=== PATIENT | male | born 1935 | race Caucasian/White ===

== ENCOUNTER 2017-12-29 19:17 | Inpatient (IN) | payer MEDICARE ==
[2017-12-29] MEDS ORDERED: Dexamethasone 4 MG TAB ONE (20:11)
[2017-12-29] MEDS ORDERED: Promethazine HCl 25 MG/ML VIAL IM PRN (22:05)
[2017-12-29] MEDS ORDERED: traMADol HCl 50 MG TAB PO PRN (22:05)
[2017-12-29] MEDS ORDERED: Mag-Al 1200 mg/1200 mg/30 ML UDCUP PO PRN (22:05)
[2017-12-29] MEDS ORDERED: diphenhydrAMINE 50 MG/ML VIAL IVP PRN (22:05)
[2017-12-29] MEDS ORDERED: Promethazine 25 MG TAB PO PRN (22:05)
[2017-12-29] MEDS ORDERED: Acetaminophen 325 MG TAB PO PRN (22:05)
[2017-12-29] MEDS ORDERED: Ondansetron PF 4 MG/2 ML Vial IVP PRN (22:05)
[2017-12-29] MEDS ORDERED: Milk Of Magnesia 30 ML UDCUP PO PRN (22:05)
[2017-12-29] MEDS ORDERED: HumaLOG 300 UNITS/3 ML VIAL SC PRN (22:13)
[2017-12-29] MEDS ORDERED: Dextrose 50% Abboject 50 ML SYRINGE SLOW IVP PRN (22:13)
[2017-12-29] MEDS ORDERED: Dextrose 5% in Water 1,000 ML IV PRN (22:13)
[2017-12-29] MEDS ORDERED: hydrALAZINE 20 MG/ML VIAL SLOW IVP PRN (22:17)
[2017-12-29] MEDS ORDERED: traZODone HCl 50 MG TAB PO PRN (22:17)
[2017-12-29 23:03] VITALS: BMI 24.6
[2017-12-29] MEDS: Dexamethasone 4 mg/ml Vial SLOW IVP SCH (23:08)
[2017-12-29] MEDS: Sodium Chloride 0.9% 1,000 ML IV SCH (23:20)
--- NOTE | 2017-12-30 01:16 | CON ---
DATE OF CONSULTATION: 12/29/2017 CHIEF COMPLAINT: Saddle paresthesias, weakness, and lumbar pain with incontinence. HISTORY OF PRESENT ILLNESS: This is an 82-year-old male with past medical history of coronary artery disease, status post stents; diabetes mellitus, type 2; hypertension; presenting with chief complaint of bilateral lower extremity weakness, pain, saddle paresthesias and incontinence. We have been consulted by Neurosurgery to see the patient for medical management. The patient presents to our hospital because he states that on 12/22/2017 he fell. The patient states that his foot got stuck under a tree root when lifting an object and patient fell on his back, causing a L1 lumbar compression fracture. The patient was then seen by Neurosurgery at [facility] and upon examination and further evaluations, Neurosurgery spoke with the patient's family regarding conservative treatment, which was putting on the brace and pain medication p.r.n. to conservatively manage the patient. However, today, the patient was sent from [facility] after having an MRI which showed a L1 compression fracture and marked mass effect on the conus medullaris. The patient is now currently in our ED at [facility] with the family by the bedside and also Neurosurgery PA by the bedside. Neurosurgery has explained to the patient's family and the patient regarding surgery being the only option for the patient. Family has now decided that they will undergo surgery after the family being given time to decide on whether they want to transfer the patient to [facility] or whether they want to keep the patient in [facility] for possible surgical intervention on Monday. Dr. Lou himself was silk conditioner with the patient's family and he spoke to the patient's family regarding surgical intervention. Dr. Lou also gave the family the option to meet up with him tomorrow on 12/30/2017 midday to discuss any further questions that they might have. At this time, the patient is lying in bed, has his brace on and the patient states that he has mild pain, but denies any chest pain, palpitations, fever, chills, shortness of breath, abdominal pain. The patient endorses numbness, tingling sensation in the inner things, weakness of the leg bilaterally and lumbar back pain. REVIEW OF SYSTEMS: Positive for lumbar pain, bilateral lower extremity weakness , numbness and tingling sensation of the inner thighs and incontinence. PAST MEDICAL HISTORY: Significant for coronary artery disease, status post stents; diabetes mellitus, type 2; hypertension. FAMILY HISTORY: Reviewed and noncontributory to this visit. PAST SURGICAL HISTORY: Cardiac stents, knee surgery bilaterally. CODE STATUS: The patient states that he wants to be resuscitated and wants to be intubated. Therefore, the patient is FULL CODE. PSYCHIATRIC HISTORY: No previous psychiatric history. SOCIAL HISTORY: The patient denies any smoking history. Denies any illicit drug use and denies any alcohol abuse. CURRENT MEDICATIONS: The patient takes aspirin 81 mg, citalopram 10 mg, clonidine 0.1 mg, Levemir 10 units subcu once a day, isosorbide mononitrate 30 mg once a day, levothyroxine 50 mcg, lisinopril 20 mg b.i.d., metoprolol succinate 25 mg once a day, pravastatin 40 mg once a day, ramipril 5 mg once a day, trazodone 50 mg once a day. PHYSICAL EXAMINATION: VITAL SIGNS: The patient's blood pressure is 138/87, heart rate of 89, respiratory rate of 20, temperature of 98.5. GENERAL: The patient is alert, oriented x3, not in acute distress. The patient is able to speak in full sentences. The patient is very pleasant. HEENT: Normocephalic, atraumatic. Pupils are equally round and reactive to light. Extraocular movements are intact. No scleral icterus. No conjunctival pallor. Mucous membranes are moist. NECK: Trachea is midline, full range of motion, supple. LUNGS: Clear to auscultation bilaterally. No wheezing, no rales, no rhonchi is appreciated. CARDIOVASCULAR: Positive S1, S2, regular rate and rhythm, no murmurs, no gallops or rubs appreciated. ABDOMEN: Soft, nontender, nondistended. The patient has positive bowel sounds in all quadrants. EXTREMITIES: The patient has weakness in the lower extremity bilaterally. The patient has pulses bilaterally at the lower extremities. The patient has decreased sensation at the lower extremities bilaterally. For upper extremities , the patient has 5/5 upper extremity strength and good pulses bilaterally at the upper extremities. For lower extremities, the patient does not have any edema. NEUROLOGIC: Cranial nerves II-XII grossly intact. No neurologic deficit is noted from cranial nerves II-XII, but for the lower extremity, the patient do have some numbness and tingling sensation at the inner thighs. The patient has some weakness at the lower extremities bilaterally. SKIN: Warm, dry and intact. IMAGING: Lumbar spine MRI showed unstable L1 Chance fracture with marked mass effect on the conus medullaris and proximal nerve roots of the cauda equina, severe central canal stenosis. For L2-L3, there is mild bilateral facet hypertrophy and disk space narrowing. There is mild bilateral neural foraminal stenosis. For L3-L4, there is bilateral mild facet hypertrophy and disk desiccation with mild bilateral neural foraminal stenosis. For L4 and L5, there is a desiccation and bilateral facet hypertrophy, mild central canal stenosis and mild bilateral neural foraminal stenosis. For L5 and S1, there is mild bilateral facet hypertrophy, mild bilateral neural foraminal stenosis. There is no significant central canal stenosis image retroperitoneal structure appears grossly unremarkable. For L1-L2, there is disk space narrowing and disk desiccation, moderate to severe right neural foraminal stenosis, mild left neural foraminal stenosis and mild central canal stenosis. From T12-L1, there is disk space narrowing. No significant central canal or neural foraminal stenosis at the mid portion of the L1 vertebral body at the level of the above described unstable Chance fracture. There is severe central canal stenosis with marked mass effect on the conus medullaris and the proximal nerve roots of the cauda equina. The conus medullaris appears to terminate at the level of the fracture at L1 level. LABORATORY DATA: WBC 6.5, hemoglobin is 13.0, hematocrit is 39.6, platelet is 256. CMP: Sodium is 135, potassium is 3.8, chloride is 101, CO2 is 24, BUN is 13, creatinine is 0.88, and glucose is 106. ASSESSMENT AND PLAN: This is an 82-year-old male with a past medical history of coronary artery disease, diabetes mellitus, and hypertension, being admitted for: 1. Status post fall leading to fracture of the L1 lumbar vertebra and a compression on the conus medullaris. At this point, Neurosurgery has been consulted due to findings that had been seen on the patient's MRI of the lumbar spine. Dr. Lou is aware of patient and states that patient will undergo surgical procedure on Monday. At this point, the patient is going to be started on steroids. We are going to hold the patient's antiplatelets and we are going to monitor the patient closely. We will keep patient in a back brace and we will follow up with Neurosurgery's recommendation. 2. Coronary artery disease, status post stents: At this point, we will consult Cardiology for surgical clearance. We will follow up with cardiology's recommendations. 3. Diabetes mellitus, type 2. We will start patient on insulin sliding scale. Restart the patient on his Levemir 10 units and we will monitor the patient's blood glucose very closely. We will try and keep patient's blood glucose between 140 to 180. 4. History of hypertension. We will continue to monitor the patient's blood pressure closely. We will continue patient on blood pressure medications. 5. Atrial fibrillation. The patient states that he has a history of atrial fibrillation and was on Eliquis, but has been stopped from using Eliquis. We recommend that patient be put on DVT ppx due to his risk of getting DVT or PE. 6. Deep venous thrombosis and gastrointestinal prophylaxis. We will continue patient DVT ppx and we will give patient gastrointestinal prophylaxis. 7. Disposition. Upon reviewing the MRI, this is very imperative that a neurosurgical intervention be done as soon as possible since the patient do have a marked mass effect on the conus medullaris and the proximal nerve roots of the cauda equina with severe central canal stenosis. At this point, Neurosurgery is aware of patient's condition and has reviewed the MRI. Physician Transit Operator for the neurosurgeon was also by the bedside and is aware of patient's MRI report and also contacted Neurosurgery regarding patient's situation. This case has been dictated by Dr. Timo Morel on patient Robert Lora. SANDIP
[2017-12-30] MEDS ORDERED: Dexamethasone 4 mg/ml Vial ONE (05:14)
[2017-12-30] MEDS ORDERED: Levothyroxine Sodium 50 MCG TAB ONE (05:17)
[2017-12-30] MEDS: Dexamethasone 4 mg/ml Vial SLOW IVP SCH ×3 (05:18→17:19)
[2017-12-30] MEDS: Levothyroxine Sodium 50 MCG TAB PO SCH (05:18)
[2017-12-30] MEDS ORDERED: Famotidine 20 MG TAB ONE (08:09)
[2017-12-30] MEDS: Famotidine 20 MG TAB PO SCH ×2 (09:42→21:32)
[2017-12-30] MEDS: Citalopram 10 MG TAB PO SCH (09:42)
[2017-12-30] MEDS: HYDROcodone/Acetaminophen 10/325 mg Tablet PO PRN ×2 (09:45→21:40)
[2017-12-30] MEDS: Famotidine/PF 20 mg/2ml Vial SLOW IVP SCH ×2 (10:06→22:53)
[2017-12-30] MEDS: Sodium Chloride 0.9% 1,000 ML IV SCH (10:09)
[2017-12-30] MEDS: Lisinopril 20 MG TAB PO SCH ×2 (10:09→21:33)
[2017-12-30 10:57] LABS: #Lymphocytes 0.5 thou/uL (1.20-3.40); #Monocytes 0.1 thou/uL (0.11-0.59); #Neutrophils 5.7 thou/uL (1.40-6.50); %Basophils 0.1 % (0.0-1.0); %Eosinophils 0.2 % (0.0-10.0); %Lymphocytes 7.8 % (21.0-51.0); %Monocytes 1.9 % (0.0-10.0); Hemoglobin 12.7 g/dL (14.0-18.0); Mean Corpuscular HGB CONC 32.5 g/dL (32.0-36.0); Mean Corpuscular Hemoglobin 29.7 pg (27.0-31.0); Mean Corpuscular Volume 91.4 fL (78.0-98.0); Mean Platelet Volume 6.2 fL (7.4-10.4); Platelet Count 266 thou/uL (130-400); RBC Distribution Width 14.1 % (11.5-14.5); Red Blood Cell (RBC) Count 4.29 mill/uL (4.70-6.10); White Blood Cell (WBC) Count 6.3 thou/uL (4.8-10.8)
[2017-12-30 11:06] LABS: INR-International Normal Ratio 1.1; PTT 31.4 SEC (22.9-36.1); Prothrombin Time 13.8 SEC (12.0-14.7)
[2017-12-30 11:15] LABS: ALT (SGPT) 11 U/L (8-55); AST (SGOT) 20 U/L (5-34); Albumin 3.2 g/dL (3.4-4.8); Alkaline Phosphatase 116 U/L (40-150); Anion Gap 18 mmol/L (10-20); BUN (Urea Nitrogen) 18 mg/dL (8.4-25.7); Bilirubin, Total 1.4 mg/dL (0.2-1.2); Calc. Creatinine Clearance 77 mL/min (70-130); Calcium 8.7 mg/dL (7.8-10.44); Carbon Dioxide 20 mmol/L (23-31); Chloride 99 mmol/L (98-107); Estimated GFR-MDRD 78; Globulin 2.2 g/dL (2.4-3.5); Glucose 185 mg/dL (83-110); Potassium 4.5 mmol/L (3.5-5.1); Protein, Total 5.4 g/dL (5.8-8.1); Sodium 132 mmol/L (136-145)
[2017-12-30] MEDS: HumaLOG 300 UNITS/3 ML VIAL SC PRN ×2 (12:07→17:19)
--- NOTE | 2017-12-30 13:36 | PRG ---
DATE OF SERVICE: 12/30/2017 I am seeing Mr. Lora and his family. I had seen him at [facility] last week for his complex L 1 fracture in the setting of DISH. He was transferred to rehab and he was doing well until approxima tely a week when he has begun to develop some saddle dysesthesias and some incontinence. On physical exam today, he has good leg strength. He has normal leg sensation, although he does comp garrett of intermittent dysesthesias. MRI of the lumbar spine reveals some progression of the posterior aspect of the L1 fracture with comp ression of the conus. ASSESSMENT AND PLAN: This is going to require surgical decompression and stabilization. He is at qu ite elevated risk given his age, heart disease, and diabetes as well as the invasiveness of the surge ry. We will hold his aspirin and get medicine on board to try to optimize his preoperative status, a lthough we will need to proceed with surgery regardless of cardiac risk. I discussed at length with the patient and his family the indications, risks, benefits, alternatives of the decompression and stabilization of the L1 fracture including but not limited to , paralys is, new neurologic deficit, infection, CSF leak, hematoma, failure of fusion, failure of hardware, wo und-related complications, or other complication. They expressed understanding and wished to proceed .
--- NOTE | 2017-12-30 13:41 | PDOC.PN ---
- Subjective Encounter Start Date: 12/30/17 Encounter Start Time: 08:15 -: old records requested/rev Pt seen and examined, chart reviewed in its entirety, this is my first visit with this patient. Follow up for lumbar fracture, incontinence, intractable back pain No F/C, no N/V/D/C, no CP or sOB, no cough or sputum All systems reviewed and neg x as above - Objective Resuscitation Status: Resuscitation Status FULL:Full Resuscitation MAR Reviewed: Yes Vital Signs & Weight: Vital Signs (12 hours) Temp Pulse Resp BP BP Pulse Ox 12/30/17 11:40 98.5 F 91 12 98/57 L 92 L 12/30/17 10:09 156/74 H 12/30/17 07:15 99 F 103 H 16 156/84 H 94 L 12/30/17 04:13 97.9 F 101 H 16 147/74 H 93 L Weight Weight 191 lb 12.835 oz I&O: 12/29/17 12/30/17 12/31/17 06:59 06:59 06:59 Intake Total 520 Balance 520 Result Diagrams: 12/30/17 10:28 12/30/17 10:28 Additional Labs: Accuchecks 12/30/17 12/30/17 11:35 05:13 POC Glucose 166 H 129 H Radiology Reviewed by me: Yes EKG Reviewed by me: Yes Phys Exam - Physical Examination Constitutional: NAD HEENT: PERRLA, moist MMs, sclera anicteric, oral pharynx no lesions Neck: no nodes, no JVD, supple, full ROM Respiratory: no wheezing, no rales, no rhonchi, clear to auscultation bilateral Cardiovascular: RRR, no significant murmur, no rub Gastrointestinal: soft, non-tender, no distention, positive bowel sounds Musculoskeletal: no edema Neurological: moves all 4 limbs Lymphatic: no nodes Psychiatric: normal affect, A&O x 3 Skin: no rash, normal turgor, cap refill <2 seconds Dx/Plan (1) Lumbar vertebral fracture Status: Acute Qualifiers: Encounter type: initial encounter Lumbar vertebra fracture level: unspecified lumbar vertebra Fracture type: closed Fracture morphology: burst - unstable Qualified Code(s): S32.002A - Unstable burst fracture of unspecified lumbar vertebra, initial encounter for closed fracture Comment: TLSO brace in place. to OR Monday for stabilization (2) Cauda equina spinal cord injury Code(s): S34.3XXA - INJURY OF CAUDA EQUINA, INITIAL ENCOUNTER Status: Acute Qualifiers: Encounter type: initial encounter Qualified Code(s): S34.3XXA - Injury of cauda equina, initial encounter (3) CAD (coronary artery disease) Code(s): I25.10 - ATHSCL HEART DISEASE OF [place] CORONARY ARTERY W/O ANG PCTRS Status: Chronic Qualifiers: Coronary Disease-Associated Artery/Lesion type: [place] artery [place] vs. transplanted heart: [place] heart Associated angina: without angina Qualified Code(s): I25.10 - Atherosclerotic heart disease of [place] coronary artery without angina pectoris - Plan cont current plan of care, plan discussed w/ family, PT/OT, social media marketing analyst * .
--- NOTE | 2017-12-30 19:06 | CON ---
DATE OF CONSULTATION: 12/30/2017 INDICATION FOR CONSULTATION: An 82-year-old gentleman who needs to undergo orthopedic procedure for ruptured disk from L1 fracture and cord compression. HISTORY OF PRESENT ILLNESS: This is a very unfortunate 82-year-old gentleman who lives in [place], was now moving to this area, has been in transition. He was here visiting family when he fell on 12/15/2017. He had injured his back, but now has continued to have worsening of problems with bowel incontinence and paresthesias in the lower extremities with weakness, and was asked to be admitted to the hospital for most likely needing to undergo surgical correction of this. He is now at this time in the bed with a tortoise shell on and we have been asked by Neurology to see the patient in order to clear him for surgery as he does have a history of coronary artery disease and had bypass surgery. He had stents placed and also bypass surgery about 10 years ago. His last echocardiogram and stress test were by his television parts tester in [place], Dr. Rincon, approximately a year ago and apparently these were unremarkable, at least according to the patient, and we will try to obtain those records. Otherwise, he has been doing quite well from a cardiac standpoint. He denies any symptoms. He does have diabetes and hypertension as well as hypercholesterolemia. He did not smoke in the past, but most likely his coronary artery disease was felt to be due to diabetes and hypercholesterolemia. PAST MEDICAL HISTORY: Significant for the coronary artery disease, angioplasty , stent placements, bypass surgery, diabetes type 2, and hypertension. He has had bilateral knee replacements and he had no complications during those surgeries. FAMILY HISTORY: Noncontributory. REVIEW OF SYSTEMS: His 12-point review of systems is unremarkable except what was noted in the history of present illness with his back pain and the weakness and tingling of the lower extremities. SOCIAL HISTORY: No history of alcohol or tobacco abuse. He is retired. REVIEW OF SYSTEMS: Unremarkable. PRESENT MEDICATIONS: Aspirin, citalopram, clonidine, Levemir, isosorbide mononitrate, levothyroxine, lisinopril, metoprolol, pravastatin, ramipril, and trazodone. PHYSICAL EXAMINATION: GENERAL: Reveals a well-developed, well-nourished gentleman. VITAL SIGNS: Blood pressure 156/74, respiratory rate 16. He is afebrile. Heart rate is 100. Temperature is 99. HEENT: Shows the head to be normocephalic and atraumatic. Carotid pulses present. There were no bruits. CHEST: Clear to auscultation without rales, rhonchi, or wheezing. CARDIOVASCULAR: Regular rate and rhythm. Normal S1, S2. There is no S3 or S4. There were no significant murmurs, heaves, thrills, bruits, or rubs. ABDOMEN: Soft and nontender, but it is difficult to evaluate fully due to the orthopedic tortoise shell. EXTREMITIES: No clubbing, cyanosis, edema. Pedal pulses are present. NEUROLOGIC: The patient was unable to get out of the bed for a full evaluation , but he does have some tingling on the lower extremities. For the full evaluation, please refer to the notes dictated by the neurologist or the neurosurgeons. LABORATORY DATA: Hemoglobin of 12.7 with a WBC of 6.3, platelet count 266,000. Creatinine is 0.88, potassium is 3.8. IMPRESSION: Unfortunate gentleman who needs to undergo surgical procedure for his L1 fracture and spinal cord compression. He has had no recent cardiac events. He denies any symptoms. He remains very active. We will try to obtain records from his television parts tester, Dr. Rincon, as soon as possible. I would suggest he have an echocardiogram performed at this time for evaluation of left ventricular systolic function to ensure there are no valvular abnormalities. As far as his coronary artery disease is concerned, he does have diabetes and may not experience chest discomfort, but if he has had a stress test within the last year that was unremarkable and has had no new symptoms, then I would suggest he proceed with his scheduled surgery without further delay. As far as his other medical problems, please refer to the notes dictated by the primary care service for control of his diabetes as well as his hypertension and hypercholesterolemia. We will be happy to continue to follow the patient with you. SANDIP
[2017-12-30] MEDS: Insulin Glargine 10 UNITS in Pre-Filled Syringe 1 EACH SC SCH (21:31)
[2017-12-30] MEDS: Pravastatin Sodium 40 MG TAB PO SCH (21:36)
[2017-12-31] MEDS: Dexamethasone 4 mg/ml Vial SLOW IVP SCH ×2 (00:46→06:26)
[2017-12-31] MEDS: Sodium Chloride 0.9% 1,000 ML IV SCH ×2 (03:05→11:32)
[2017-12-31] MEDS: Levothyroxine Sodium 50 MCG TAB PO SCH (06:26)
[2017-12-31] MEDS: HumaLOG 300 UNITS/3 ML VIAL SC PRN ×3 (06:26→17:06)
[2017-12-31] MEDS: HYDROcodone/Acetaminophen 10/325 mg Tablet PO PRN ×2 (06:30→20:40)
[2017-12-31] MEDS: Famotidine 20 MG TAB PO SCH ×2 (08:53→20:41)
[2017-12-31] MEDS: Famotidine/PF 20 mg/2ml Vial SLOW IVP SCH ×2 (08:53→20:50)
[2017-12-31] MEDS: Citalopram 10 MG TAB PO SCH (08:53)
[2017-12-31] MEDS: Lisinopril 20 MG TAB PO SCH ×2 (08:55→20:40)
--- NOTE | 2017-12-31 11:18 | PDOC.PN ---
- Subjective Encounter Start Date: 12/31/17 Encounter Start Time: 08:15 Follow up for lumbar fracture, incontinence, intractable back pain No F/C, no N/V/D/C, no CP or sOB, no cough or sputum All systems reviewed and neg x as above - Objective Resuscitation Status: Resuscitation Status FULL:Full Resuscitation MAR Reviewed: Yes Vital Signs & Weight: Vital Signs (12 hours) Temp Pulse Resp BP BP Pulse Ox 12/31/17 11:08 98.9 F 90 18 148/73 H 93 L 12/31/17 08:55 18 117/72 93 L 12/31/17 08:40 98.1 F 77 14 119/70 91 L 12/31/17 00:00 98.9 F 87 16 119/67 94 L Weight Weight 191 lb 12.835 oz I&O: 12/30/17 12/31/17 01/01/18 06:59 06:59 06:59 Intake Total 520 1470 490 Output Total 500 400 Balance 520 970 90 Result Diagrams: 12/30/17 10:28 12/30/17 10:28 Additional Labs: Accuchecks 12/31/17 12/30/17 12/30/17 05:35 21:30 16:24 POC Glucose 168 H 274 H 178 H 12/30/17 11:35 POC Glucose 166 H Phys Exam - Physical Examination Constitutional: NAD HEENT: PERRLA, moist MMs, sclera anicteric, oral pharynx no lesions Neck: no nodes, no JVD, supple, full ROM Respiratory: no wheezing, no rales, no rhonchi, clear to auscultation bilateral Cardiovascular: RRR, no significant murmur Gastrointestinal: soft, non-tender, no distention, positive bowel sounds Musculoskeletal: no edema Neurological: non-focal, moves all 4 limbs Lymphatic: no nodes Psychiatric: normal affect, A&O x 3 Skin: no rash, normal turgor, cap refill <2 seconds Dx/Plan (1) Lumbar vertebral fracture Status: Acute Qualifiers: Encounter type: initial encounter Lumbar vertebra fracture level: unspecified lumbar vertebra Fracture type: closed Fracture morphology: burst - unstable Qualified Code(s): S32.002A - Unstable burst fracture of unspecified lumbar vertebra, initial encounter for closed fracture Comment: TLSO brace in place. to OR Monday for stabilization (2) Cauda equina spinal cord injury Code(s): S34.3XXA - INJURY OF CAUDA EQUINA, INITIAL ENCOUNTER Status: Acute Qualifiers: Encounter type: initial encounter Qualified Code(s): S34.3XXA - Injury of cauda equina, initial encounter (3) CAD (coronary artery disease) Code(s): I25.10 - ATHSCL HEART DISEASE OF [place] CORONARY ARTERY W/O ANG PCTRS Status: Chronic Qualifiers: Coronary Disease-Associated Artery/Lesion type: [place] artery [place] vs. transplanted heart: [place] heart Associated angina: without angina Qualified Code(s): I25.10 - Atherosclerotic heart disease of [place] coronary artery without angina pectoris - Plan * .
[2017-12-31] MEDS: Insulin Glargine 10 UNITS in Pre-Filled Syringe 1 EACH SC SCH (20:41)
[2017-12-31] MEDS: Pravastatin Sodium 40 MG TAB PO SCH (20:41)
[2018-01-01] MEDS: Sodium Chloride 0.9% 1,000 ML IV SCH ×3 (00:48→21:42)
[2018-01-01] MEDS: Levothyroxine Sodium 50 MCG TAB PO SCH (05:10)
[2018-01-01] MEDS: HYDROcodone/Acetaminophen 10/325 mg Tablet PO PRN ×4 (05:10→21:42)
[2018-01-01 05:40] LABS: #Eosinphils 0.1 thou/uL (0.0-0.7); #Lymphocytes 1.7 thou/uL (1.20-3.40); #Monocytes 0.8 thou/uL (0.11-0.59); #Neutrophils 5.5 thou/uL (1.40-6.50); %Eosinophils 0.9 % (0.0-10.0); %Lymphocytes 21.1 % (21.0-51.0); %Monocytes 9.9 % (0.0-10.0); %Neutrophils 68.1 % (42.0-75.0); Hemoglobin 13.3 g/dL (14.0-18.0); Mean Corpuscular HGB CONC 32.7 g/dL (32.0-36.0); Mean Corpuscular Hemoglobin 29.1 pg (27.0-31.0); Mean Corpuscular Volume 88.8 fL (78.0-98.0); Mean Platelet Volume 6.4 fL (7.4-10.4); Platelet Count 283 thou/uL (130-400); RBC Distribution Width 13.7 % (11.5-14.5); Red Blood Cell (RBC) Count 4.58 mill/uL (4.70-6.10)
[2018-01-01 05:50] LABS: Anion Gap 10 mmol/L (10-20); BUN (Urea Nitrogen) 23 mg/dL (8.4-25.7); Calc. Creatinine Clearance 71 mL/min (70-130); Calcium 8.4 mg/dL (7.8-10.44); Carbon Dioxide 27 mmol/L (23-31); Chloride 101 mmol/L (98-107); Estimated GFR-MDRD 72; Glucose 96 mg/dL (83-110); Magnesium 1.8 mg/dL (1.6-2.6); Sodium 134 mmol/L (136-145)
[2018-01-01] MEDS ORDERED: Sodium Chloride 0.9% 10 ML ONE (06:32)
[2018-01-01] MEDS ORDERED: Fentanyl 100 MCG/2 ML VIAL ONE ×5 (06:38→11:46)
[2018-01-01] MEDS ORDERED: CEFAZOLIN 2 GM/50 ML BAG ONE (07:23)
--- NOTE | 2018-01-01 10:23 | OP ---
DATE OF PROCEDURE: 01/01/2018 SURGEON: Shashi Lou M.D. TOWER DRAGLINE OPERATOR: Peng Pantoja PA-C PROCEDURE: Decompressive L1 laminectomy, posterolateral arthrodesis T11-L3, demineralized bone matri x, local morselized autograft, BMP, attempted pedicle screw instrumentation T11-L3. PROCEDURE IN DETAIL: The patient was brought to the operating room and intubated. He was rolled in the prone position on gel-filled chest rolls. Incision made exposing T11 through L3 and our level wa s confirmed by x-ray. We did identify some evidence of posterior fracture at the L1 site. The patie nt had autofusion at multiple areas of the posterior lumbar region, but ultimately we were able to ob tain a corridor in the region of the L1-L2 interspace. Using this corridor, we then performed a comp lete decompression in the region of the L1 fracture and a complete L1 laminectomy was performed as we ll as some amount of L2 and some amount of T12. A complete decompression of the spinal cord was achi eved. We next attempted to place pedicle screws. Pedicle screw placement failed. At each level attempted, the bone of the pedicle was extremely soft and the access corridor became projected laterally and me dially with minimal potential access corridor into the vertebral body with an extremely soft bony sub strate. I attempted right L3, right L2, right T11, left L3 and left L2 before ultimately aborting. At none of these attempted levels was a successful screw able to be placed despite multiple attempts at each level. Ultimately, I believe that the patient's bone stock will not support instrumentation. The wound was then extensively irrigated. Immaculate hemostasis was secured. BMP was soaked on a Gelf[place]am pledget combined with local morselized autograft and demineralized bone matrix and laid over the posterolateral surfaces from T11-L3. Vancomycin powder was then applied and the wound was closed in anatomic layers over a drain.
[2018-01-01] MEDS ORDERED: Morphine Sulfate 2 MG/ML SYRINGE SLOW IVP PRN (10:29)
[2018-01-01] MEDS ORDERED: Promethazine HCl 25 MG/ML VIAL SLOW IVP PRN (10:29)
[2018-01-01] MEDS ORDERED: Promethazine HCl 25 MG/ML VIAL IM PRN (10:29)
[2018-01-01] MEDS ORDERED: Ondansetron HCl/PF 4 MG/2 ML Vial IVP PRN (10:29)
[2018-01-01] MEDS ORDERED: Morphine 2 MG/ML SYRINGE ONE ×2 (10:56→11:23)
--- NOTE | 2018-01-01 12:27 | PDOC.PN ---
- Subjective Encounter Start Date: 01/01/18 Encounter Start Time: 12:25 Subjective: f/u for cauda equina syndrome and L1 vertebral fx. Neurosurgical -: intervention unsuccessful due to osteopenia. - Objective Resuscitation Status: Resuscitation Status FULL:Full Resuscitation MAR Reviewed: Yes Vital Signs & Weight: Weight Weight 191 lb 12.835 oz I&O: 12/31/17 01/01/18 01/02/18 06:59 06:59 06:59 Intake Total 1470 3520 Output Total 500 2500 Balance 970 1020 Result Diagrams: 01/01/18 04:38 01/01/18 04:39 Additional Labs: Accuchecks 12/31/17 12/31/17 20:35 15:55 POC Glucose 149 H 232 H Radiology Reviewed by me: Yes (2D echo - EF 45%, diast dysfxn) Phys Exam - Physical Examination Constitutional: NAD HEENT: PERRLA, sclera anicteric, oral pharynx no lesions Neck: no nodes, no JVD, supple, full ROM Respiratory: no wheezing, no rales, no rhonchi, clear to auscultation bilateral S1, S2 Cardiovascular: RRR, no significant murmur, no rub, gallop Gastrointestinal: soft, non-tender, no distention, positive bowel sounds TLSO brace in place Musculoskeletal: no edema, pulses present Neurological: normal sensation, moves all 4 limbs A x O x 2 Skin: normal turgor, cap refill <2 seconds Dx/Plan (1) L1 vertebral fracture Code(s): S32.019A - UNSP FRACTURE OF FIRST LUMBAR VERTEBRA, INIT FOR CLOS FX Status: Acute Comment: conservative mgmt, TLSO bracing, pain control, PT/OT, Rehab options (2) Cauda equina spinal cord injury Code(s): S34.3XXA - INJURY OF CAUDA EQUINA, INITIAL ENCOUNTER Status: Acute Qualifiers: Encounter type: initial encounter Qualified Code(s): S34.3XXA - Injury of cauda equina, initial encounter Comment: TLSO bracing, pain control, PT (3) Diastolic dysfunction Code(s): I51.9 - HEART DISEASE, UNSPECIFIED Status: Chronic Comment: No exacerbation currently (4) CAD (coronary artery disease) Code(s): I25.10 - ATHSCL HEART DISEASE OF [place] CORONARY ARTERY W/O ANG PCTRS Status: Chronic Qualifiers: Coronary Disease-Associated Artery/Lesion type: [place] artery [place] vs. transplanted heart: [place] heart Associated angina: without angina Qualified Code(s): I25.10 - Atherosclerotic heart disease of [place] coronary artery without angina pectoris Comment: Chronic, stable, continue med mgmt (5) DM II (diabetes mellitus, type II), controlled Code(s): E11.9 - TYPE 2 DIABETES MELLITUS WITHOUT COMPLICATIONS Status: Chronic Comment: [place] 10u HS, ISS, ADA - Plan PT/OT, social insurance adviser, DVT proph w/SCDs Stable currently -: Pain control -: PT/OT for optimization of mobility -: TLSO bracing -: CM for Rehab/SNF options * .
[2018-01-01] MEDS: Citalopram 10 MG TAB PO SCH (13:12)
[2018-01-01] MEDS: Famotidine 20 MG TAB PO SCH ×2 (13:12→21:03)
[2018-01-01] MEDS: Famotidine/PF 20 mg/2ml Vial SLOW IVP SCH ×2 (13:13→21:03)
[2018-01-01] MEDS: Lisinopril 20 MG TAB PO SCH ×2 (13:13→21:02)
[2018-01-01] MEDS: CEFAZOLIN 1 GM VIAL SLOW IVP SCH ×2 (13:21→21:04)
[2018-01-01] MEDS: Morphine 2 MG/ML SYRINGE SLOW IVP PRN ×2 (14:21→16:08)
[2018-01-01] MEDS ORDERED: PROPOFOL 200 MG/20 ML VIAL ONE (15:09)
[2018-01-01] MEDS ORDERED: Ondansetron PF 4 MG/2 ML Vial ONE (15:09)
[2018-01-01] MEDS ORDERED: PHENYLEPHRINE-NS 100 MCG/ML 10 ML SYRINGE ONE (15:09)
[2018-01-01] MEDS ORDERED: Lidocaine 1% PF 5 ML VIAL ONE (15:09)
[2018-01-01] MEDS ORDERED: Glycopyrrolate 0.2 MG/ML 5 ML SYRINGE ONE (15:09)
[2018-01-01] MEDS ORDERED: ePHEDrine/0.9% NaCl/PF SYRINGE 50 mg/10 ml ONE (15:09)
--- NOTE | 2018-01-01 16:42 | PDOC.CTH ---
Cardiology Progress Note - Subjective Pt. is in the CCU after spinal surgery this AM. Apparrently he has significant osteoporosis and required cementing and bone grafting for the fracture. The cord compression seems to be resolved and he has already been sen by PT. He is resting comfortably now. No cardiac events. - Objective Vital Signs Temp Pulse Pulse BP BP BP Pulse Ox 01/01/18 15:05 98 103 H 120/74 118/72 01/01/18 14:22 98 107 H 136/74 140/75 01/01/18 13:13 128/65 01/01/18 13:00 97.6 F 01/01/18 12:42 97 Pulse Ox Pulse Ox 01/01/18 15:05 01/01/18 14:22 94 L 96 01/01/18 13:13 01/01/18 13:00 01/01/18 12:42 Weight 191 lb 12.835 oz 12/31/17 01/01/18 01/02/18 06:59 06:59 06:59 Intake Total 1470 3520 490 Output Total 500 2500 340 Balance 970 1020 150 - Physical Examination General/Neuro: alert & oriented x3 Neck: no JVD present Lungs: CTA, unlabored respirations Heart: RRR Abdomen: NT/ND, soft - Telemetry Telemetry Rhythm: NSR - Labs Result Diagrams: 01/01/18 04:38 01/01/18 04:39 - Assessment/Plan 1. s/p spinal surgery for cord compression and disc fracture. 2. CAD: stable. No cardiac events. History of stent placement. 3. CMY: EF 40-45%. Records from previous embossed or impressed lettering painter not yet available. Overall cardiac status is stable. I will continue to follow with you for a couple days and if no events then will sign off and he can f/u in the office in 4-6 weeks.
--- NOTE | 2018-01-01 16:47 | CON ---
DATE OF CONSULTATION: 01/01/2018 I visited with Ms. Lora postoperatively. He has good leg strength and sensation. He was having so me back pain, which is fairly typical postoperative in nature. We will continue to observe him in the ICU tonight and we will also check an ultrasound of the legs. We will plan to mobilize him more aggressively beginning tomorrow and move him to the floor. He sharif l need to be in his TLSO indefinitely.
--- NOTE | 2018-01-01 19:13 | ULT ---
ULTRASOUND WITH DOPPLER DUPLEX VENOUS LOWER EXTREMITY [] CPT: 75186 ICD-10-PCS: B54D HISTORY: Pain and edema. TECHNIQUE: Color flow Doppler, spectral waveform analysis of pulsed Doppler, and zamora-scale imaging with andrzej jim and augmentation, were used to evaluate the bilateral common femoral, femoral, popliteal, sales assistant displays ior tibial, and superficial femoral, veins; and the proximal portions of the profunda femoral and gre ater saphenous, veins. FINDINGS: There is no evidence of DVT identified. There is compressibility and flow within the imaged deep vein system of each lower extremity. Economic Development Specialist notes sluggish flow within the venous structures during image acquisition. IMPRESSION: No DVT is demonstrated within the visualized bilateral lower extremities. POS: CRICKET
[2018-01-01] MEDS: Pravastatin Sodium 40 MG TAB PO SCH (21:02)
[2018-01-01] MEDS: Insulin Glargine 10 UNITS in Pre-Filled Syringe 1 EACH SC SCH (21:03)
[2018-01-02] MEDS: Levothyroxine Sodium 50 MCG TAB PO SCH (05:45)
[2018-01-02] MEDS: CEFAZOLIN 1 GM VIAL SLOW IVP SCH ×3 (05:45→22:00)
[2018-01-02] MEDS: HYDROcodone/Acetaminophen 10/325 mg Tablet PO PRN ×3 (08:40→22:00)
[2018-01-02] MEDS: Morphine 2 MG/ML SYRINGE SLOW IVP PRN (08:44)
[2018-01-02] MEDS: Lisinopril 20 MG TAB PO SCH (09:13)
[2018-01-02] MEDS: Famotidine 20 MG TAB PO SCH ×2 (09:13→21:59)
[2018-01-02] MEDS: Citalopram 10 MG TAB PO SCH (09:15)
[2018-01-02] MEDS ORDERED: Morphine 2 MG/ML SYRINGE SLOW IVP PRN (09:20)
--- NOTE | 2018-01-02 10:36 | PDOC.CTH ---
<Allison Capps - Last Filed: 01/02/18 10:34> Cardiology Progress Note - Subjective The pt seen and examined. No overnight events. No cardiac complaints. He has mild discomfort to his back. HR has been up since he was up to chair this AM around 0800. - Objective Vital Signs Temp Pulse Pulse BP BP BP Pulse Ox 01/02/18 09:58 98.1 F 01/02/18 09:13 139/77 01/02/18 08:20 144 H 120 H 154/95 H 131/90 01/02/18 07:35 95 01/02/18 07:00 98.2 F 01/02/18 04:00 97.9 F 01/02/18 00:00 97.7 F Pulse Ox Pulse Ox 01/02/18 09:58 01/02/18 09:13 01/02/18 08:20 95 95 01/02/18 07:35 01/02/18 07:00 01/02/18 04:00 01/02/18 00:00 Weight 191 lb 12.835 oz 01/01/18 01/02/18 01/03/18 06:59 06:59 06:59 Intake Total 3520 2197 200 Output Total 2500 1002 250 Balance 1020 1195 -50 - Physical Examination General/Neuro: alert & oriented x3 Neck: no JVD present Heart: RRR Abdomen: soft Extremities: other: (No edema) - Telemetry Telemetry Rhythm: ST 110s - Labs Result Diagrams: 01/01/18 04:38 01/01/18 04:39 - Assessment/Plan 1. S/p spinal surgery for cord compression and disc fracture on 01/01/18. 2. CAD with hx of multiple stents - stable. No cardiac events. On Lisinopril. Will start Metoprolol 12.5mg BID from today for ST. 3. CMY: EF 40-45%. Records from previous care partner not yet available. Overall cardiac status is stable. I will continue to follow with you for a couple days and if no events then will sign off and he can f/u in the office in 4-6 weeks. Review of Systems - Review of Systems Constitutional: reports: no symptoms reported EENTM: reports: no symptoms reported Respiratory: reports: no symptoms reported Cardiac (ROS): reports: no symptoms reported ABD/GI: reports: no symptoms reported : reports: no symptoms reported Musculoskeletal: reports: no symptoms reported Skin: reports: no symptoms reported <Belkis Staley - Last Filed: 01/02/18 10:56> Cardiology Progress Note - Objective Vital Signs Temp Pulse Pulse BP BP BP Pulse Ox 01/02/18 09:58 98.1 F 01/02/18 09:13 139/77 01/02/18 08:20 144 H 120 H 154/95 H 131/90 01/02/18 07:35 95 01/02/18 07:00 98.2 F 01/02/18 04:00 97.9 F 01/02/18 00:00 97.7 F Pulse Ox Pulse Ox 01/02/18 09:58 01/02/18 09:13 01/02/18 08:20 95 95 01/02/18 07:35 01/02/18 07:00 01/02/18 04:00 01/02/18 00:00 Weight 191 lb 12.835 oz 01/01/18 01/02/18 01/03/18 06:59 06:59 06:59 Intake Total 3520 2197 200 Output Total 2500 1002 250 Balance 1020 1195 -50 - Labs Result Diagrams: 01/01/18 04:38 01/01/18 04:39 - Assessment/Plan Pt. seen and eval. by me. I agree with the A/P by the CLIENT SERVICE REPRESENTATIVE. Chest clear. RRR. Agree with betablockers. Pt. was on metoprolol in the past.
[2018-01-02] MEDS: HumaLOG 300 UNITS/3 ML VIAL SC PRN ×2 (10:54→16:37)
[2018-01-02] MEDS ORDERED: Metoprolol Tartrate 25 MG TAB PO SCH (11:00)
--- NOTE | 2018-01-02 12:40 | PDOC.PN ---
- Subjective Encounter Start Date: 01/02/18 Encounter Start Time: 12:20 Subjective: f/u L1 vertebral compression fx not amenable to fusion due to osteopenia -: and poor bone matrix. Feels some better and less pain with TLSO brace. -: Tachycardia noted per nursing. - Objective Resuscitation Status: Resuscitation Status FULL:Full Resuscitation MAR Reviewed: Yes Vital Signs & Weight: Vital Signs (12 hours) Temp Pulse Pulse BP BP BP Pulse Ox 01/02/18 09:58 98.1 F 01/02/18 09:13 139/77 01/02/18 08:20 144 H 120 H 154/95 H 131/90 01/02/18 07:35 95 01/02/18 07:00 98.2 F 01/02/18 04:00 97.9 F Pulse Ox Pulse Ox 01/02/18 09:58 01/02/18 09:13 01/02/18 08:20 95 95 01/02/18 07:35 01/02/18 07:00 01/02/18 04:00 Weight Weight 191 lb 12.835 oz Most Recent Monitor Data Heart Rate from ECG 108 NIBP 100/67 NIBP BP-Mean 78 Respiration from ECG 16 SpO2 94 I&O: 01/01/18 01/02/18 01/03/18 06:59 06:59 06:59 Intake Total 3520 2197 300 Output Total 2500 1002 295 Balance 1020 1195 5 Result Diagrams: 01/01/18 04:38 01/01/18 04:39 Additional Labs: Accuchecks 01/02/18 01/02/18 01/01/18 10:50 05:45 21:01 POC Glucose 157 H 122 H 122 H 01/01/18 16:43 POC Glucose 137 H Radiology Reviewed by me: Yes (BLE venous doppler - negative for DVT) EKG Reviewed by me: Yes (Tele - Sinus tachycardia) Phys Exam - Physical Examination Constitutional: NAD alert, responsive HEENT: PERRLA, sclera anicteric, oral pharynx no lesions Neck: no nodes, no JVD, supple, full ROM Respiratory: no wheezing, no rales, no rhonchi, clear to auscultation bilateral tachycardic S1, S2 Cardiovascular: no significant murmur, no rub, gallop Gastrointestinal: soft, non-tender, no distention, positive bowel sounds Musculoskeletal: no edema, pulses present Neurological: moves all 4 limbs Skin: normal turgor, cap refill <2 seconds Dx/Plan (1) L1 vertebral fracture Code(s): S32.019A - UNSP FRACTURE OF FIRST LUMBAR VERTEBRA, INIT FOR CLOS FX Status: Acute Comment: conservative mgmt, TLSO bracing, pain control (2) Cauda equina spinal cord injury Code(s): S34.3XXA - INJURY OF CAUDA EQUINA, INITIAL ENCOUNTER Status: Acute Qualifiers: Encounter type: initial encounter Qualified Code(s): S34.3XXA - Injury of cauda equina, initial encounter Comment: TLSO bracing, pain control, PT (3) Diastolic dysfunction Code(s): I51.9 - HEART DISEASE, UNSPECIFIED Status: Chronic Comment: No exacerbation currently (4) CAD (coronary artery disease) Code(s): I25.10 - ATHSCL HEART DISEASE OF [place] CORONARY ARTERY W/O ANG PCTRS Status: Chronic Qualifiers: Coronary Disease-Associated Artery/Lesion type: [place] artery [place] vs. transplanted heart: [place] heart Associated angina: without angina Qualified Code(s): I25.10 - Atherosclerotic heart disease of [place] coronary artery without angina pectoris Comment: Chronic, stable, continue med mgmt (5) DM II (diabetes mellitus, type II), controlled Code(s): E11.9 - TYPE 2 DIABETES MELLITUS WITHOUT COMPLICATIONS Status: Chronic Comment: Lantus 10u HS, ISS, ADA (6) Constipation Code(s): K59.00 - CONSTIPATION, UNSPECIFIED Status: Acute Comment: Mag citrate, Miralax, Senna - Plan plan discussed w/ family, PT/OT, social media marketing specialist, respiratory therapy, incentive spirometry, DVT proph w/SCDs Stable overall -: Start Miralax and Mag Citrate -: Pain control with [place], Morphine Sulfate, Zanaflex -: PT/OT for mobilization -: CM for rehab/SNF options * .
[2018-01-02] MEDS ORDERED: Magnesium Citrate 300 ML BOT PO SCH (13:00)
--- NOTE | 2018-01-02 13:13 | PRG ---
DATE OF SERVICE: 01/02/2018 Mr. Lora continues to do well. He has been out of bed and his neurologic function in the lower ext remities seems to be improving as well. Pain control remains an issue. floor today, and we will continue with TLSO bracing. The way things are progressing, he may be a candidate for rehab placement at the end of the week. I updated his family.
[2018-01-02] MEDS: tiZANidine HCl 4 MG TAB PO PRN ×2 (14:59→22:07)
[2018-01-02] MEDS: Sodium Chloride 0.9% 1,000 ML IV SCH (18:39)
[2018-01-02] MEDS: Metoprolol Tartrate 25 MG TAB PO SCH (21:58)
[2018-01-02] MEDS: Pravastatin Sodium 40 MG TAB PO SCH (21:59)
[2018-01-02] MEDS: Insulin Glargine 10 UNITS in Pre-Filled Syringe 1 EACH SC SCH (22:23)
[2018-01-03] MEDS: CEFAZOLIN 1 GM VIAL SLOW IVP SCH ×2 (06:01→15:14)
[2018-01-03] MEDS: Levothyroxine Sodium 50 MCG TAB PO SCH (06:02)
--- NOTE | 2018-01-03 07:46 | PDOC.CTH ---
<Allison Capps - Last Filed: 01/03/18 07:46> Cardiology Progress Note - Subjective The pt seen and examined. No overnight events. No cardiac complaints. He stated he feels better because he slept well last night. More alerted today. - Objective Vital Signs Temp Pulse Resp BP Pulse Ox 01/03/18 04:45 98.5 F 81 18 148/61 H 97 01/03/18 00:57 98.6 F 85 20 107/64 96 01/02/18 20:05 98.6 F 100 19 130/70 97 Weight 191 lb 12.835 oz 01/02/18 01/03/18 01/04/18 06:59 06:59 06:59 Intake Total 2197 1465 Output Total 1002 380 Balance 1195 1085 - Physical Examination General/Neuro: alert & oriented x3 Neck: no JVD present Lungs: CTA Heart: RRR Abdomen: soft Extremities: other: (No eedema) - Labs Result Diagrams: 01/01/18 04:38 01/01/18 04:39 - Assessment/Plan 1. S/p spinal surgery for cord compression and disc fracture on 01/01/18 - less pain with TLSO brace; managed by neurology service. 2. CAD with hx of multiple stents - stable. No cardiac events. On Statin, Lisinopril and Metoprolol 12.5mg BID. Will resume ASA when the surgeon is ok. 3. CMY: EF 40-45%. Records from previous cathead operator not yet available. Overall cardiac status is stable. I will continue to follow with you for a couple days and if no events then will sign off and he can f/u in the office in 4-6 weeks. Review of Systems - Review of Systems Constitutional: reports: weakness EENTM: reports: no symptoms reported Respiratory: reports: no symptoms reported Cardiac (ROS): reports: no symptoms reported ABD/GI: reports: no symptoms reported : reports: no symptoms reported Musculoskeletal: reports: no symptoms reported <Belkis Staley - Last Filed: 01/03/18 16:56> Cardiology Progress Note - Objective Vital Signs Temp Pulse Resp BP BP Pulse Ox 01/03/18 15:12 98.3 F 87 16 138/82 98 01/03/18 11:57 98.7 F 88 18 166/89 H 98 01/03/18 10:10 131/70 01/03/18 08:00 97 01/03/18 07:22 98.7 F 82 14 131/70 97 Weight 191 lb 12.835 oz 01/02/18 01/03/18 01/04/18 06:59 06:59 06:59 Intake Total 2197 1465 1050 Output Total 1002 380 300 Balance 1195 1085 750 - Labs Result Diagrams: 01/01/18 04:38 01/01/18 04:39 - Assessment/Plan Pt. seen and eval. by me. I agree with the A/P by the COMPUTER TESTER. Cardiac status is stable. I will sign off. If any cardiac issues then please consult me again.
[2018-01-03] MEDS: Famotidine 20 MG TAB PO SCH ×2 (10:09→20:49)
[2018-01-03] MEDS: Metoprolol Tartrate 25 MG TAB PO SCH ×2 (10:09→20:48)
[2018-01-03] MEDS: Citalopram 10 MG TAB PO SCH (10:09)
[2018-01-03] MEDS: Lisinopril 10 MG TAB PO SCH (10:10)
[2018-01-03] MEDS: Sodium Chloride 0.9% 1,000 ML IV SCH ×2 (10:10→21:48)
[2018-01-03] MEDS: Polyethylene Glycol 3350 17 GM Packet PO SCH (10:12)
--- NOTE | 2018-01-03 12:01 | PRG ---
DATE OF SERVICE: 01/03/2018 Mr. Lora is postoperative day 5 for a 3 column L1 fracture and a chance pattern variant. He is doi ng well with improved pain control. He has a well fitting brace and he moves his bilateral lower ext remities to command, bending at the knees and wiggling at the toes. He is concerned about not being on his antiplatelet and anticoagulant medication. However, again I have conveyed the nature of his i njury and the risk of epidural hematoma if we anticoagulate or antiplatelet him to soon. He understa nds we will continue to work on inpatient rehab and remove his drain.
[2018-01-03] MEDS: HYDROcodone/Acetaminophen 10/325 mg Tablet PO PRN ×2 (12:25→21:46)
--- NOTE | 2018-01-03 12:45 | PDOC.PN ---
- Subjective Encounter Start Date: 01/03/18 Encounter Start Time: 12:35 Subjective: f/u for L1 vertebral compression fx/Chance Fx not amenable to surgical -: fusion due to severe osteopenia. TLSO bracing and pain control currently. -: + BM's - Objective Resuscitation Status: Resuscitation Status FULL:Full Resuscitation MAR Reviewed: Yes Vital Signs & Weight: Vital Signs (12 hours) Temp Pulse Resp BP BP Pulse Ox 01/03/18 11:57 98.7 F 88 18 166/89 H 98 01/03/18 10:10 131/70 01/03/18 07:22 98.7 F 82 14 131/70 97 01/03/18 04:45 98.5 F 81 18 148/61 H 97 01/03/18 00:57 98.6 F 85 20 107/64 96 Weight Weight 191 lb 12.835 oz Most Recent Monitor Data Heart Rate from ECG 106 NIBP 107/76 NIBP BP-Mean 86 Respiration from ECG 24 SpO2 97 I&O: 01/02/18 01/03/18 01/04/18 06:59 06:59 06:59 Intake Total 2197 1465 1050 Output Total 1002 380 300 Balance 1195 1085 750 Result Diagrams: 01/01/18 04:38 01/01/18 04:39 Additional Labs: Accuchecks 01/03/18 01/02/18 01/02/18 06:12 21:19 15:46 POC Glucose 187 H 187 H 166 H Phys Exam - Physical Examination Constitutional: NAD HEENT: PERRLA, sclera anicteric, oral pharynx no lesions Neck: no nodes, no JVD, supple, full ROM Respiratory: no wheezing, no rales, no rhonchi, clear to auscultation bilateral S1, S2 Cardiovascular: RRR, no significant murmur, no rub, gallop Gastrointestinal: soft, non-tender, no distention, positive bowel sounds Musculoskeletal: no edema, pulses present Neurological: normal sensation, moves all 4 limbs Skin: no rash, normal turgor, cap refill <2 seconds Dx/Plan (1) L1 vertebral fracture Code(s): S32.019A - UNSP FRACTURE OF FIRST LUMBAR VERTEBRA, INIT FOR CLOS FX Status: Acute Comment: conservative mgmt, TLSO bracing, pain control (2) Cauda equina spinal cord injury Code(s): S34.3XXA - INJURY OF CAUDA EQUINA, INITIAL ENCOUNTER Status: Acute Qualifiers: Encounter type: initial encounter Qualified Code(s): S34.3XXA - Injury of cauda equina, initial encounter Comment: TLSO bracing, pain control, PT (3) Diastolic dysfunction Code(s): I51.9 - HEART DISEASE, UNSPECIFIED Status: Chronic Comment: No exacerbation currently (4) CAD (coronary artery disease) Code(s): I25.10 - ATHSCL HEART DISEASE OF [place] CORONARY ARTERY W/O ANG PCTRS Status: Chronic Qualifiers: Coronary Disease-Associated Artery/Lesion type: [place] artery [place] vs. transplanted heart: [place] heart Associated angina: without angina Qualified Code(s): I25.10 - Atherosclerotic heart disease of [place] coronary artery without angina pectoris Comment: Chronic, stable, continue med mgmt (5) DM II (diabetes mellitus, type II), controlled Code(s): E11.9 - TYPE 2 DIABETES MELLITUS WITHOUT COMPLICATIONS Status: Chronic Comment: Lantus 10u HS, ISS, ADA (6) Constipation Code(s): K59.00 - CONSTIPATION, UNSPECIFIED Status: Acute Comment: Miralax, Senna PRN, resolving - Plan PT/OT, social security benefits interviewer, out of bed/ambulate, DVT proph w/SCDs Stable currently -: TLSO bracing for comfort/ambulating -: Pain control -: CM for Rehab options -: Continue Metoprolol 12.5mg BID * Hold antiplatelet therapy
[2018-01-03] MEDS ORDERED: Tamsulosin HCl 0.4 MG CAP PO SCH (17:45)
[2018-01-03] MEDS: Insulin Glargine 10 UNITS in Pre-Filled Syringe 1 EACH SC SCH (20:49)
[2018-01-03] MEDS: Pravastatin Sodium 40 MG TAB PO SCH (20:49)
[2018-01-04] MEDS: HYDROcodone/Acetaminophen 10/325 mg Tablet PO PRN ×3 (05:14→15:20)
[2018-01-04] MEDS: Levothyroxine Sodium 50 MCG TAB PO SCH (05:14)
[2018-01-04] MEDS: Sodium Chloride 0.9% 1,000 ML IV SCH (07:31)
[2018-01-04] MEDS: Metoprolol Tartrate 25 MG TAB PO SCH (09:48)
[2018-01-04] MEDS: Citalopram 10 MG TAB PO SCH (09:50)
[2018-01-04] MEDS: Famotidine 20 MG TAB PO SCH (09:50)
[2018-01-04] MEDS: Lisinopril 10 MG TAB PO SCH (09:50)
[2018-01-04] MEDS: Polyethylene Glycol 3350 17 GM Packet PO SCH (09:50)
[2018-01-04 12:11] VITALS: BP 172/79; TEMP 97.9
--- NOTE | 2018-01-04 12:46 | DIS ---
DATE OF ADMISSION: 12/29/2017 DATE OF DISCHARGE: 01/04/2018 DISCHARGE DIAGNOSES: 1. L1 vertebral fracture status post fall. 2. Cauda equina spinal cord injury secondary to #1. 3. Diastolic dysfunction without exacerbation. 4. Coronary artery disease, chronic and stable. 5. Diabetes mellitus type 2, insulin requiring. 6. Constipation, resolved. PRIMARY SERVICE ATTENDING: Dr. Shashi Lou with neurosurgical service. CONSULTATIONS: With [facility], inpatient physicians and Dr. Staley with Cardiology Service. PERTINENT LABORATORY AND X-RAY FINDINGS: Sodium ranged between 132-134. Hemoglobin ranged between 1 2.7-13.3. A 2D transthoracic echocardiogram dated 12/31/2017 showed ejection fraction of 40%-45% wit h likely diastolic dysfunction. Mild aortic valve sclerosis. Bilateral lower extremity venous Doppl er study dated 01/01/2018 showed no evidence for DVT. HOSPITAL COURSE: The patient was initially admitted under the Neurosurgical service presenting with saddle paresthesias, weakness, and lumbar pain status post mechanical fall. The patient was diagnose d with a L1 lumbar compression fracture with associated cauda equina syndrome. The patient was evalu ated by Neurosurgical services with recommendations to undergo surgical intervention. The patient un derwent operative management on 01/01/2018. However, due to poor bone matrix and osteopenia instrume ntation was unsuccessful. However, patient did receive complete decompression of the spinal cord and was monitored postoperatively. The patient was placed in a TLSO brace and given physical and occupa tional therapy. The patient overall remained clinically stable; however, was noted an appropriate ca ndidate for ongoing physical and occupational therapy and a supervised setting and has been approved to transfer to inpatient rehabilitation. I have examined the patient at the time of discharge and di scussed followup instructions. The patient clinically stable and may transfer on 01/04/2018. CURRENT DISCHARGE MEDICATIONS: 1. Miacalcin 100 units subcutaneously daily. 2. Calcium carbonate 1000 mg p.o. q.i.d. p.r.n. 3. Clonidine 0.1 mg p.o. b.i.d. 4. Imdur ER 30 mg p.o. daily. 5. Loperamide 2 mg p.r.n. 6. Metoprolol succinate 25 mg p.o. daily. 7. Multivitamin 1 tab p.o. daily. 8. MiraLax 17 grams p.o. daily. 9. Altace 5 mg p.o. daily. 10. Simethicone 80 mg p.o. after meals at bedtime p.r.n. FOLLOWUP: Patient will follow up with Dr. Lou with Neurosurgical Service. CONDITION ON DISCHARGE: Fair. ACTIVITY: Ad luisito, rolling walker with standby/contact guard assistance. DIET: ADA. CODE STATUS: FULL. DISPOSITION: Discharged to [facility] inpatient rehabilitation on 01/04/2018.
== END 2018-01-04 16:35 | DRG 29 ==
LOC: ERS 19:17 → SURG A 22:41 → CCU 01-01 10:10 → SURG B 01-02 13:56
PROVIDERS: ADMIT Internal Medicine; ATTEND Internal Medicine
PROC: 3E0234Z Introduction of Serum, Toxoid and Vaccine into Muscle, Percutaneous Approach (ICD-10-PCS; 2017-12-30)
PROC: 00NY0ZZ Release Lumbar Spinal Cord, Open Approach (ICD-10-PCS; principal; 2018-01-01)
DX: S34.3XXA Injury of cauda equina, initial encounter (principal); S32.019A Unspecified fracture of first lumbar vertebra, initial encounter for closed fracture; I50.32 Chronic diastolic (congestive) heart failure; W18.30XA Fall on same level, unspecified, initial encounter; I11.0 Hypertensive heart disease with heart failure; I25.10 Atherosclerotic heart disease of native coronary artery without angina pectoris; E11.9 Type 2 diabetes mellitus without complications; Z79.4 Long term (current) use of insulin; K59.00 Constipation, unspecified; Z95.1 Presence of aortocoronary bypass graft; Z95.5 Presence of coronary angioplasty implant and graft; E78.00 Pure hypercholesterolemia, unspecified; Z96.653 Presence of artificial knee joint, bilateral; Z23 Encounter for immunization
CPT/HCPCS: 36415; 36416; 76001; 80048; 80053; 83735; 85025; 85610; 85730; 90471; 90662; 93306; 93970; C1768; G0008; G8978-GP-CM; G8979-GP-CI; G8987-GO-CL; G8988-GO-CJ; J0690; J1100; J2001; J2270; J2405; J2704; J3010; J3370; J3490; J8540